=== PATIENT | female | born 1970 | race American Indian/Alaskan Native ===

== ENCOUNTER 2017-11-09 06:28 | Day surgery (SDC) | payer MEDICARE ==
--- NOTE | 2017-11-09 07:28 | Anesthesia Consultation ---
Anesthesia Consult and Med Hx Date of service: 11/09/17 - Airway Anesthetic Teeth Evaluation: Good ROM Head & Neck: Adequate Mental/Hyoid Distance: Adequate Mallampati Class: Class II Intubation Access Assessment: Probably Good - Pre-Operative Health Status ASA Pre-Surgery Classification: ASA3 Proposed Anesthetic Plan: MAC - Pulmonary Hx Sleep Apnea: Yes - Cardiovascular System Hx Hypertension: Yes Hx Coronary Artery Disease: No (high cholesterol) - Central Nervous System Hx Neuromuscular Disorder: Yes (fibromyalgia) Hx Psychiatric Problems: Yes (depression) - Gastrointestinal Hx Gastroesophageal Reflux Disease: Yes - Endocrine Hx Non-Insulin Dependent Diabetes: Yes - Other Systems Hx Obesity: Yes (morbid obesity, pre bariatric evaluation)
--- NOTE | 2017-11-09 07:28 | Anesthesia Day of Surgery ---
Anesthesia Day of Surgery - Day of Surgery Patient Examined: Yes Patient H&P Reviewed: Yes Patient is NPO: Yes
[2017-11-09] MEDS ORDERED: WATER FOR IRRIG STERILE IR ONE (07:32)
[2017-11-09] MEDS ORDERED: VERSED ONE (07:40)
[2017-11-09] MEDS ORDERED: DIPRIVAN 10 MG/ML IV ONE (07:40)
[2017-11-09] MEDS ORDERED: HURRICAINE ONE 20% TOPICAL SPRAY MM ×2 (07:41→07:51)
[2017-11-09] MEDS ORDERED: XYLOCAINE 2% INFILTRATI ONE (07:43)
[2017-11-09] MEDS ORDERED: NACL 0.9% 1000 ML 1,000 ML IV SCH (08:00)
--- NOTE | 2017-11-09 08:12 | Discharge Summary ---
Providers - Providers Attending physician: AMY CASTELLON Primary care physician: BRENT SAEZ MD Hospitalization Procedures: egd Hospital course: 47 y.o. F presented for EGD. She tolerated the procedure well. She was discharged. Disposition: - TO HOME OR SELFCARE Core Measure Documentation - Palliative Care Palliative Care/ Comfort Measures: Not Applicable - Core Measures Any of the following diagnoses?: none Exam - Physical Exam Narrative exam: no change from prior Plan Additional Instructions: Bring Cpap with you on day of surgery. Follow up with: BRENT SAEZ MD [Primary Care Provider] - 7 Days
--- NOTE | 2017-11-09 08:14 | Operative Report ---
Operative Report Operative Report: OPERATIVE REPORT - EGD DATE 11/09/17 SURGERY: Upper endoscopy. SURGEON: Dr. Obrien CLEANING AND MAINTENANCE WORKER: Edgardo Gaytan DO PRE OP DX: POST OP DX:Hiatal hernia TYPE OF ANESTHESIA: MAC. ESTIMATED BLOOD LOSS: None. COMPLICATIONS: None. SPECIMENS REMOVED: None. FINDINGS: 1. Moderate hiatal hernia. 2. Otherwise, normal esophagus, stomach and first portion of duodenum. INDICATIONS:INDICATION FOR PROCEDURE: Patient is a 47-year-old female with a long history of morbid obesity. She is planned to have a weight loss procedure and is here for preoperative planning EGD. PROCEDURE DETAILS: After consent was reviewed, patient was taken back to the operating room where patient was placed in the left lateral decubitus position and a bite block was placed in the mouth. After a time-out was called, MAC anesthesia was initiated. I then passed the endoscope into her oropharynx, into her esophagus, visualized the entire esophagus, which was all within normal limits. I then visualized the stomach and the first portion of the duodenum and there were no abnormalities I could clearly visualize. I then retroflexed the scope in the stomach and visualized the hiatus and I could see a moderate hiatal hernia. I then desufflated the stomach and removed the endoscope. Patient tolerated procedure well and was transferred to recovery room in good and stable condition.
[2017-11-09 08:37] VITALS: BP 121/66
--- NOTE | 2017-11-09 14:12 | Post Anesthesia Evaluation ---
- Post Anesthesia Evaluation Patient Participated: Yes Airway Patent: Yes Stable Respiratory Function: Yes Nausea/Vomiting: No Temp > 96.8F: Yes Pain Manageable: Yes Adequeate Hydration: Yes Anesthesia Complications: No Block Receding Appropriately: Not Applicable
== END 2017-11-09 06:29 | disposition home or self-care (01) ==
LOC: GIO 06:28
PROVIDERS: ATTEND Specialist
DX: K44.9 Diaphragmatic hernia without obstruction or gangrene (principal); K21.9 Gastro-esophageal reflux disease without esophagitis; I10 Essential (primary) hypertension; M79.7 Fibromyalgia; G47.33 Obstructive sleep apnea (adult) (pediatric); E11.9 Type 2 diabetes mellitus without complications; E78.00 Pure hypercholesterolemia, unspecified; E66.01 Morbid (severe) obesity due to excess calories; F32.9 Major depressive disorder, single episode, unspecified; Z68.41 Body mass index [BMI] 40.0-44.9, adult
CPT/HCPCS: 43235; 82962; J2250; J2704; J7030; 81025